=== PATIENT | female | born 1990 | race African-American/Black ===

== ENCOUNTER 2021-01-28 10:53 | Observation (INO) | payer SELFPAY ==
[2021-01-28] VITALS (22 sets, daily range): BP systolic 89–150; BP diastolic 47–97; PULSE 101–136; RESP 17–18; TEMP 36.4–36.8; O2SAT 100
--- NOTE | ~2021-01-28 | US_ITS ---
EXAMINATION: US OB <= 14 weeks fetus DATE: 01/28/2021 14:23 INDICATION: Vaginal bleeding and clots during first trimester . TECHNIQUE: Real-time pelvic ultrasound utilizing transabdominal probe was performed. The eliezer smith radiologist was not present for the study. COMPARISON: None. FINDINGS: The uterus measures 11.9 x 7.0 x 7.5 cm. There is an intrauterine gestational sac. A yolk sac and fe jaye pole are identified. The crown rump length measures 4.1 cm, which correlates with an estimated ge stational age of 11 weeks and 0 days. No evident heart motion identified by M-mode Doppler or o n the cine grayscale images consistent with demise. There appears to be a U-shaped funneling at the cervix with cervical length measuring approximately 2.0 cm. Assessment of the cervix is however somewhat limited on transabdominal imaging. The ovaries are not visualized. There is no free fluid in the pelvis. IMPRESSION: 1. Single fetus with crown-rump length of 4.1 cm corresponding to an estimated gestational age of 11 weeks and 0 days which is without discernible heart motion consistent with demise. 2. Suggestion of a U-shaped cervical funneling with decreased cervical length of approximately 2 cm. Reviewed, dictated and finalized at location A. IMPRESSION: 1. Single fetus with crown-rump length of 4.1 cm corresponding to an estimated gestational age of 11 weeks and 0 days which is without discernible heart motion consistent with demise. 2. Suggestion of a U-shaped cervical funneling with decreased cervical length o f approximately 2 cm.
--- NOTE | 2021-01-28 11:19 | PC.NURSE ---
Pt refused IV from EMS. Per EMS Pt brought into room by this RN. Informed pt that we would need to get her into bed so I can get vitals and get her comfortable. Pt states mama I am not able to get out of this chair, I am moving around to much and just need to sit here . Pt then requested to use restroom. This RN took pt to restroom where pt states she was unable to go. Pt then returned to room where pt gets into bed. Pt states she is unsure of her LMP and is unsure when her due date is. Pt is requesting pain medication. Pt is also refusing to keep blood pressure cuff on and O2 monitor on.
--- NOTE | 2021-01-28 11:36 | PC.NURSE ---
Pt refused blood draw from tech. This RN into pts room and pt is laying on chair. Informed pt that we need to have her back in bed so we can draw blood and get somethings done. Pt started to scream at this RN my baby is dying, i didn't come here for all this stuff. I need an ultrasound. If you cant give me that then I will sign the paperwork and leave . Pt didnt want this RN to do heart tones on her. But then allowed me. This RN unable to get heart tones. Pt is thrashing all over bed and no signs of bleeding is noted.
--- NOTE | 2021-01-28 11:43 | PC.NURSE ---
went into draw blood on patient at 1120 and patient refused to get into bed. She was laying on chairs and said she could not do it now. REturned to draw blood at 1134 and patient refused. She said that the Dr could do it. I explained the Dr does not draw blood but she refused.
--- NOTE | 2021-01-28 11:46 | PC.NURSE ---
Up to bathroom, when given a urine cup states I already accidentally peed. Reminded that specimen will be needed to help diagnose pt.
--- NOTE | 2021-01-28 11:58 | PC.NURSE ---
Pt refusiing to give urine and refusing to have blood drawn. Pt states I just want an ultrasound I can't handle this right now I came here to get ultrasound, i dont want anything else
--- NOTE | 2021-01-28 12:01 | PC.NURSE ---
Dr. Patricia speaking to patient. Pt refusing all treatment. states I am here for ultrasound. I don't want anything else done the customer is always right Dr. Patricia told pt that if she is refusing treatment than she can sign out AMA.
--- NOTE | 2021-01-28 12:05 | PC.NURSE ---
Pt states You aren't treating me because im black right!? If it was a little white girl up in here you would be helping here, I know your type. You little zenon serna, your grandma whipped my ancestors
[2021-01-28 13:04] LABS: Basophils Percent Auto 0.2 % (0.2-1.2); Hematocrit 37.3 % (37.0-47.0); Hemoglobin 12.3 g/dL (12.0-15.0); Immature Granulocyte Absolute 0.02 K/mm3 (0.00-0.031); Immature Granulocyte Percent A 0.3 % (0-0.5); Lymphocytes Percent Auto 18.8 % (18.3-44.2); Mean Corpuscular Hemoglobin 26.8 pg (26-34); Mean Corpuscular Volume 81.3 fl (80-100); Mean Platelet Volume 9.8 fl (7.4-10.4); Monocytes Absolute Auto 0.4 K/mm3 (0.1-0.6); Monocytes Percent Auto 5.9 % (2.6-8.5); Neutrophils Absolute Auto 4.8 K/mm3 (1.3-6.7); Neutrophils Percent Auto 74.8 % (45.5-73.1); Platelet Count Result 301 k/mm3 (150-375); Red Blood Count 4.59 M/mm3 (4.2-5.4); Red Cell Distribution Width 12.2 % (11.5-14.5); White Blood Count 6.4 K/mm3 (4.5-10.0)
[2021-01-28] MEDS: ONDANSETRON INJ 4 MG/2 ML VIAL IV PUSH (13:17)
[2021-01-28] MEDS: MORPHINE SULFATE (*CRX) 4 MG/ML INJ IV PUSH ×2 (13:17→14:17)
[2021-01-28 14:26] LABS: Anion Gap 11 mmol/L (8-16); Blood Urea Nitrogen 11 mg/dL (7-17); Calcium 9.7 mg/dL (8.4-10.2); Carbon Dioxide 20 mmol/L (22-30); Chloride 107 mmol/L (98-107); Estimated CRCL calculation 154 ml/min; Estimated Glomerular Filt Rate > 60; Glucose 124 mg/dL (65-110); Potassium 4.5 mmol/L (3.4-5.0); Sodium 138 mmol/L (137-145)
--- NOTE | 2021-01-28 15:21 | PC.NURSE ---
This RN called SHARE coordinator Salome Molina to come and speak with pt.
--- NOTE | 2021-01-28 15:27 | ED.FEMALEGU ---
HPI - Female Genitourinary General Chief complaint: Vaginal Bleeding Stated complaint: vaginal bleeding, 3-4 Time Seen by Provider: 01/28/21 11:44 History of Present Illness HPI Narrative: Patient is a 30-year-old female who presents ER with vaginal bleeding and pelvic cramping. Patient reports known IUP. Reports approximately 2 months in gestation. 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 She reports 5 days ago while in [place] she was stuck in an elevator for around an hour. She had a syncopal episode. She went to an ER in [place] who reported to her that she did not have heart tones with her . They wanted her to follow-up but patient opted to come back to [facility]. Patient reports this morning she started having some vaginal bleeding and went through 4 pads. She is having persistent cramping. Unsure what her blood type is. Related Data Allergies Allergy/AdvReac Type Severity Reaction Status Date / Time No Known Allergies Allergy Verified 01/28/21 13:12 Review of Systems Review of Systems: All systems reviewed & are unremarkable except as noted in HPI and below Constitutional: Constitutional: Denies chills and Denies fatigue Gastrointestinal: Gastrointestinal: Reports abdominal pain, Denies constipation, Denies nausea and Denies vomiting Genitourinary: Genitourinary: Reports abnormal vaginal bleeding, Denies dysuria and Denies vaginal discharge Neurologic: Denies syncope, Denies focal weakness and Denies numbness PMFSH Past Medical History Medical History (Updated 01/28/21 @ 15:31 by Kp Patricia MD) Healthy female adult Surgical History Surgical History (Updated 01/28/21 @ 15:29 by Kp Patricia MD) No history of previous surgery Social History Social History (Updated 01/28/21 @ 15:29 by Kp Patricia MD) Smoking status: Never smoker Exam Narrative: GENERAL: Well-appearing, well-nourished, and in no acute distress. HEAD: Normocephalic, atraumatic. EYES: PERRL, EOMI. CHEST: Clear to auscultation. No respiratory distress. HEART: Regular rate and rhythm. Normal peripheral pulses. ABDOMEN: Soft, nontender, nondistended. : Normal external genitalia. Pelvic exam with fetus present in the vaginal vault. Pooling of blood. Cervix open. No additional discharge. EXTREMITIES: Normal range of motion. No edema. SKIN: Warm, dry, no rash. NEURO: Alert and oriented x3. PSYCH: Normal mood and affect. Course Course Emergency Course: Patient had leakage of fluid from her vagina just prior to pelvic exam. demise passing spontaneously. It was removed. Discussed with OB. Admit for observation and give Methergine 4 times daily. Patient must wait 1 hour after delivery to make sure she is not hemorrhaging before she can eat. Vital Signs Vital signs: Vital Signs Temperature 98.2 F 01/28/21 11:13 Pulse Rate 102 H 01/28/21 11:13 Respiratory Rate 18 01/28/21 11:13 Blood Pressure 146/88 H 01/28/21 11:13 Pulse Oximetry 100 01/28/21 11:13 Temperature 98.2 F 01/28/21 11:13 Pulse Rate 102 H 01/28/21 11:13 Respiratory Rate 18 01/28/21 11:13 Blood Pressure 146/88 H 01/28/21 11:13 Pulse Oximetry 100 01/28/21 11:13 MDM - Female Genitourinary Lab Data Result diagrams: 01/28/21 12:55 01/28/21 12:55 Labs: Lab Results 01/28/21 01/28/21 01/28/21 Range/Units 12:55 12:55 12:55 WBC 6.4 (4.5-10.0) K/mm3 RBC 4.59 (4.2-5.4) M/mm3 Hgb 12.3 (12.0-15.0) g/dL Hct 37.3 (37.0-47.0) % MCV 81.3 (80-100) fl MCH 26.8 (26-34) pg MCHC 33.0 (32-36) g/dl RDW 12.2 (11.5-14.5) % Plt Count 301 (150-375) k/mm3 MPV 9.8 (7.4-10.4) fl Immature Gran % (Auto) 0.3 (0-0.5) % Neut % (Auto) 74.8 H (45.5-73.1) % Lymph % (Auto) 18.8 (18.3-44.2) % [place] % (Auto) 5.9 (2.6-8.5) % Eos % (Auto) 0.0 (0-4.4) % Baso % (Auto) 0.2 (0.2-1.2)
--- NOTE | 2021-01-28 16:08 | PC.NURSE ---
Called and spoke with Karla at [facility]. Fetus is not a candidate for donation
--- NOTE | 2021-01-28 16:09 | PC.NURSE ---
This RN called [facility] and spoke with Aby. Body is good to be released
--- NOTE | 2021-01-28 16:39 | PC.NURSE ---
Met with patient while she was in ER. Pt cooperative and appropriately emotional off and on. Share program and support presented to her and pt receptive. She was given mementos and Share folder of information. She expressed desire to see and hold her baby; baby placed in a small crocheted cradle and presented to the patient. She held baby, looked at her baby and kissed her baby. Share support committed to pt as she needs/wants. Pt knows the need of a contact phone number of her boyfriend for f/u. And pt stated she would call me with an address.
[2021-01-28] MEDS: HYDROcodone/acetaminophen (*CRX) 5-325 MG TABLET 1 TAB PO (17:11)
--- NOTE | 2021-01-28 17:29 | PC.NURSE ---
1715--Pt. up to BR, passed large clot with placental tissue noted. Phone call to Dr. Lake to update, orders to continue to monitor v.s. and bleeding and call Dr. Lake at 2100 to update.
--- NOTE | 2021-02-03 07:26 | PM.OBTRLD ---
OB - Triage/Final Diagnosis Visit Information Reason for evaluation: other (spontaneous ) Comments/Additional reasons for admission: I have assessed the risk for this patient, Panchito Oliver, and determined that she would benefit from observation care. Evaluation Laboratory results: Laboratory Tests 01/28/21 01/28/21 01/28/21 12:55 12:55 12:55 WBC 6.4 RBC 4.59 Hgb 12.3 Hct 37.3 MCV 81.3 MCH 26.8 MCHC 33.0 RDW 12.2 Plt Count 301 MPV 9.8 Immature Gran % (Auto) 0.3 Neut % (Auto) 74.8 H Lymph % (Auto) 18.8 Davison % (Auto) 5.9 Eos % (Auto) 0.0 Baso % (Auto) 0.2 Lymph # (Auto) 1.20 Davison # (Auto) 0.4 Eos # (Auto) 0.0 Baso # (Auto) 0.0 Abs Immat Gran (auto) 0.02 Absolute Neuts (auto) 4.8 Absolute Nucleated RBC 0.0 Nucleated RBC % 0.0 Sodium Potassium Chloride Carbon Dioxide Anion Gap BUN Creatinine Estim Creat Clear Calc Estimated GFR Glucose Calcium Beta HCG, Quant 3530.20 Blood Type O Positive Antibody Screen Negative Screen Not Reportable Baby's Blood Type Not Reportable Baby's MILAN Not Reportable Doses of RhIg Required 0 01/28/21 12:55 WBC RBC Hgb Hct MCV MCH MCHC RDW Plt Count MPV Immature Gran % (Auto) Neut % (Auto) Lymph % (Auto) Davison % (Auto) Eos % (Auto) Baso % (Auto) Lymph # (Auto) Davison # (Auto) Eos # (Auto) Baso # (Auto) Abs Immat Gran (auto) Absolute Neuts (auto) Absolute Nucleated RBC Nucleated RBC % Sodium 138 Potassium 4.5 Chloride 107 Carbon Dioxide 20 L Anion Gap 11 BUN 11 Creatinine 0.30 L Estim Creat Clear Calc 154 Estimated GFR > 60 Glucose 124 H Calcium 9.7 Beta HCG, Quant Blood Type Antibody Screen Screen Baby's Blood Type Baby's MILAN Doses of RhIg Required
== END 2021-01-28 21:50 | disposition home or self-care (01) ==
LOC: ANHED 15:31 → ANHLDR 16:11
PROVIDERS: Emergency Medicine; Admitting Provider Obstetrics & Gynecology Gynecology; Emergency Provider Emergency Medicine; Visit Provider Obstetrics & Gynecology Gynecology
DX: O03.9 Complete or unspecified spontaneous abortion without complication (principal)
CPT/HCPCS: 36415; 76801; 80048; 84702; 85025; 85461; 88300; 88305; 96374; 96375; 96376; 99285; A9270; G0378; G0379; J2270; J2405